=== PATIENT | female | born 1975 | race Caucasian/White ===

== ENCOUNTER 2018-11-08 12:35 | Emergency (ER) | payer OTHER ==
[~2018-11-08] VITALS: Ht 154.9 cm; Wt 99.8 kg
[2018-11-08 12:42] VITALS: BP 152/99
[2018-11-08] MEDS ORDERED: KETOROLAC TROMETHAMINE INJ 30 MG/ML VIAL ONE (12:51)
--- NOTE | 2018-11-08 12:59 | NUR ---
Patient discharged to home in stable condition. Written and verbal after care instructions given. Patient verbalizes understanding of instruction.
[2018-11-08] MEDS ORDERED: KETOROLAC TROMETHAMINE INJ 60 MG/2 ML VIAL IM ONE (13:00)
== END 2018-11-08 12:58 | disposition home or self-care (01) ==
LOC: ER 12:41
DX: M54.5 Low back pain (principal); M54.6 Pain in thoracic spine; I10 Essential (primary) hypertension
CPT/HCPCS: 96372; 99283; J1885